=== PATIENT | female | born 1935 | race Caucasian/White ===

== ENCOUNTER 2018-07-31 15:00 | Inpatient (IN) | payer OTHER ==
[~2018-07-31] VITALS: Ht 165.1 cm; Wt 81.6 kg
[~2018-07-31 15:00] MED LIST: ALLEGRA ALLERG180 MG PO; AMOX1TAB12 PO; ARICEPT5 MG; DILANTIN30 MG PO; INTESTINEX1 CAP PO; KEPPRA500 MG; LASIX20 MG; NASONEX17 GM NS; VASOTEC2.5 MG
--- NOTE | 2018-07-31 16:05 | NUR ---
PTE SE RECIBE POR CVA SYMPTOMS REFIERE FAMILIAR.
[2018-08-02] MEDS ORDERED: SIMVASTATIN20 MG PO (10:23)
[2018-08-02] MEDS ORDERED: PLAVIX75 MG PO (10:23)
== END 2018-08-02 13:31 | disposition home or self-care (01) | DRG 69 ==
LOC: ER 15:00 → MEDJ 22:38 → SEC-K 22:38 → MEDJ 08-01 11:44
PROVIDERS: ADMIT Internal Medicine
PROC: B030ZZZ Magnetic Resonance Imaging (MRI) of Brain (ICD-10-PCS; principal; 2018-07-31)
PROC: B020ZZZ Computerized Tomography (CT Scan) of Brain (ICD-10-PCS; 2018-07-31)
PROC: 4A12X4Z Monitoring of Cardiac Electrical Activity, External Approach (ICD-10-PCS; 2018-08-01)
PROC: B348ZZZ Ultrasonography of Bilateral Internal Carotid Arteries (ICD-10-PCS; 2018-08-01)
PROC: B345ZZZ Ultrasonography of Bilateral Common Carotid Arteries (ICD-10-PCS; 2018-08-01)
PROC: B246ZZZ Ultrasonography of Right and Left Heart (ICD-10-PCS; 2018-08-01)
DX: G45.8 Other transient cerebral ischemic attacks and related syndromes (principal); F03.91 Unspecified dementia, unspecified severity, with behavioral disturbance; I69.822 Dysarthria following other cerebrovascular disease; I10 Essential (primary) hypertension
CPT/HCPCS: 70551

== ENCOUNTER 2018-08-25 14:32 | Emergency (ER) | payer OTHER ==
[~2018-08-25] VITALS: Ht 160 cm; Wt 90.7 kg
[~2018-08-25 14:32] MED LIST changes: +PLAVIX75 MG PO; +SIMVASTATIN20 MG PO
== END 2018-08-25 21:23 | disposition home or self-care (01) ==
LOC: ER 14:32
DX: S02.2XXA Fracture of nasal bones, initial encounter for closed fracture (principal); S01.121A Laceration with foreign body of right eyelid and periocular area, initial encounter; S01.22XA Laceration with foreign body of nose, initial encounter; W45.8XXA Other foreign body or object entering through skin, initial encounter; Y93.89 Activity, other specified; Y92.018 Other place in single-family (private) house as the place of occurrence of the external cause; Y99.8 Other external cause status

== ENCOUNTER → 2018-09-02 | Emergency (ER) | payer OTHER ==
[~2018-09-02] VITALS: Ht 172.7 cm; Wt 74.8 kg
== END | disposition home or self-care (01) ==
LOC: ER 11:25
DX: Z48.02 Encounter for removal of sutures (principal)